=== PATIENT | male | born 1960 | race Caucasian/White ===

== ENCOUNTER → 2016-10-15 | Outpatient (CLI) | payer BC ==
[2016-03-20 11:05] VITALS: BP 135/79
[~2016-10-15] MED LIST: ALLO300T PO; FURO20TA3 PO; HYDR-2679 PO; METO25TA9 PO; WARF7.5T48 PO
--- NOTE | 2016-10-15 15:04 | KCIC ---
PQRS Compliance Statement: One or more of the following individualized dose reduction techniques were utilized for this examination: 1. Automated exposure control 2. Adjustment of the mA and/or kV according to patient size 3. Use of iterative reconstruction technique CT CHEST WO CONTRAST Clinical Indication: Increased shortness of air x2 months. Comparison: None. TECHNIQUE: Helical CT imaging of the chest is performed without IV contrast. Findings: Thyroid is symmetric. There is outside of [id number] artifact that increases noise to signal ratio and degrades image quality. There is no adenopathy in the chest, limited evaluation of the loyd without IV contrast. The great vessels are normal caliber although there is pulsation artifact. Mild coronary artery disease. Cardiac size upper limits of normal. No pericardial effusion. No pleural effusion. Central airways are patent. Mild respiratory motion artifact. There is a 3 mm nodule in the right lower lobe adjacent to the major fissure that is probably an intrapulmonary lymph node, coronal image 48. Tiny calcified granuloma left lower lobe, coronal image 58. Lungs otherwise clear. Visualized upper abdomen unremarkable. Degenerative endplate spurring in the midthoracic spine. No acute bone abnormality. IMPRESSION: 1. No acute pulmonary process. 2. Mild coronary artery disease. 3. Cardiac size upper limits of normal. Electronically signed by: Latrell Ness MD (10/15/2016 3:01 PM)
== END | disposition home or self-care (01) ==
LOC: KCIC CT 12:39
PROVIDERS: ATTEND Nurse Practitioner Family
DX: R06.02 Shortness of breath (principal); I10 Essential (primary) hypertension; Z79.01 Long term (current) use of anticoagulants
CPT/HCPCS: 71250

== ENCOUNTER 2016-10-17 12:40 | Inpatient (IN) | payer BC ==
[~2016-10-17] VITALS: Ht 172.7 cm; Wt 214.5 kg
[2016-10-17 14:42] VITALS: BP 146/66
--- NOTE | 2016-10-17 15:37 | RAD ---
Indication: Shortness of breath and hypertension. Time of exam 1527 hours. Correlation is made with prior study from 12/15/2010 FINDINGS: The heart size is normal. The lungs are clear. No pleural effusion or pneumothorax is identified. The pulmonary vascularity is normal. IMPRESSION: No acute abnormality detected.
[2016-10-17] MEDS: METOPROLOL SUCC 24HR ER 25 MG TAB.ER.24H. PO SCH (15:47)
[2016-10-17] MEDS: ALLOPURINOL 300 MG TABLET. PO SCH (15:47)
--- NOTE | 2016-10-17 15:54 | PDOC2 ---
DANDY KOWALSKI CONSTRUCTION ESTIMATOR 10/17/16 1554: CARDIAC CONSULT DATE OF CONSULT Date of Consult DATE: 10/17/16 TIME: 15:52 REASON FOR CONSULT Reason for Consult: Shortness of breath REFERRING PHYSICIAN Referring Physician: Dr. Vizcarra SOURCE Source: Chart review, Patient HISTORY OF PRESENT ILLNESS HISTORY OF PRESENT ILLNESS This is a 56 yo male directly admitted by Dr. Vizcarra with complaints of shortness of breath. Patient reports experiencing BRIONES over the last 4-6 months. Has progressively worsened. Over the last 2 months, SOA with minimal exertion ( walking 15ft.). LE edema present for the last 5 years. Possibly worse recently. Denies any chest pain, palpitations, dizziness, diaphoresis, or nausea/ vomiting. No prior history of CAD or previous cardiac workup. Does have a h/o AYSHA and is compliant with CPAP. 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 . 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 Was prescribed Lasix 3 days ago, but has not had filled, yet. Labs pending. CXR without acute changes. PAST MEDICAL HISTORY Cardiovascular: HTN Pulmonary: Other (AYSHA with CPAP, PE) GI: GERD Heme/Onc: No pertinent hx Hepatobiliary: No pertinent hx Psych: No pertinent hx Rheumatologic: Gout Infectious disease: No pertinent hx ENT: No pertinent hx Renal/: No pertinent hx Endocrine: Other (morbid obesity ) Dermatology: No pertinent hx PAST SURGICAL HISTORY Past Surgical History: Tonsillectomy, Other (right knee sx) FAMILY HISTORY Family History: Hypertension SOCIAL HISTORY Smoke: Quit (25 yrs ago) ALCOHOL: none Drugs: None Lives: with Family ALLERGIES ALLERGIES: Coded Allergies: No Known Drug Allergies (Unverified , 03/16/16) ROS Review of System 14 point ROS conducted with pertinent positives noted above in HPI. PHYSICAL EXAM General: Alert, Oriented X3, Cooperative, No acute distress HEENT: Atraumatic, Mucous membr. moist/pink Lungs: Clear to auscultation Heart: Regular rate, Normal S1, Normal S2, No murmurs Abdomen: Soft, No tenderness, Other (obese ) Extremities: Normal pulses, Other (2+ bilateral LE edema ) Skin: No breakdown, Other (chronic venous stasis changes og bilateral LE) Neuro: Normal speech, Sensation intact Psych/Mental Status: Mental status NL, Mood NL VITALS VITALS Vital Signs Date Time Temp Pulse Resp B/P (MAP) Pulse Ox O2 Delivery O2 Flow Rate FiO2 10/17/16 15:15 Room Air 10/17/16 14:42 97.9 87 18 146/66 (92) 95 97.9 ASSESSMENT/PLAN ASSESSMENT/PLAN 1. Dyspnea on exertion 2. Hypertension 3. LE edema 4. H/o PE on chronic warfarin therapy 5. AYSHA with CPAP 6. ? hypoventilation syndrome 7. Morbid obesity Recommendations Echo to evaluate LV function, PA pressures. ? Right-sided HF check NT Pro BNP. CXR not consistent with acute HF Mild diuresis as able Further recommendation pending labs and diagnostics. Problems: GAURAV BAUMANN MD 10/17/16 1832: CARDIAC CONSULT ALLERGIES ALLERGIES: Coded Allergies: No Known Drug Allergies (Unverified , 03/16/16) ASSESSMENT/PLAN ASSESSMENT/PLAN Agents seen and examined. Agree with above nurse practitioner note. 56-year-old gentleman with morbid obesity presenting with dyspnea. At this present time he has 1+ pitting edema of the lower extremities. Normal heart tones. His chest x-ray is unremarkable, and the laboratory evaluation reveals no elevation of BNP. Suspect pickwickian syndrome and probable chronic diastolic heart failure. Supportive care and gentle diuresis as tolerated. Suspect his dyspnea is mostly related to his obesity. Although an ischemic evaluation could be considered but due to the patient's morbid obesity a nuclear stress test would likely yield false-positive results. Due to his weight he would also not be able to lie on a cath table. For now would start medical therapy for risk factor modification including aspirin and statin. Check echocardiogram tomorrow and if abnormal consider further evaluation. Problems: DANDY KOWALSKI APRN Oct 17, 2016 15:54 GAURAV BAUMANN MD Oct 17, 2016 18:32
[2016-10-17] MEDS: FUROSEMIDE 20 MG TABLET PO SCH (15:59)
[2016-10-17 16:36] LABS: BASO # 0.1 x10^3/uL (0.0-0.2); BASO % 1 % (0-3); EOS % 1 % (0-3); HEMATOCRIT 38.3 % (39.0-53.0); HEMOGLOBIN 12.4 g/dL (13.0-17.5); LYMPH # 1.9 x10^3/uL (1.0-4.8); LYMPH % 17 % (24-48); MEAN CORPUSCULAR HEMOGLOBIN 27 pg (25-35); MEAN CORPUSCULAR HGB CONC 32 g/dL (31-37); MEAN CORPUSCULAR VOLUME 84 fL (79-100); MONO % 5 % (0-9); NEUT % 77 % (31-73); PLATELET COUNT 196 x10^3/uL (140-400); RED BLOOD COUNT 4.55 x10^6/uL (4.30-5.70); RED CELL DISTRIBUTION WIDTH 16.7 % (11.5-14.5); WHITE BLOOD COUNT 11.3 x10^3/uL (4.0-11.0)
[2016-10-17 16:46] LABS: INR 3.4 (0.8-1.1)
[2016-10-17 16:57] LABS: ALBUMIN 2.9 g/dL (3.4-5.0); ALBUMIN/GLOBULIN RATIO 0.6 (1.0-1.7); CALCIUM 8.8 mg/dL (8.5-10.1); CREATININE 1.2 mg/dL (0.7-1.3); GFR 62.4; TOTAL BILIRUBIN 0.3 mg/dL (0.2-1.0); TOTAL PROTEIN 7.5 g/dL (6.4-8.2)
[2016-10-17 19:00] VITALS: BP 140/77
[2016-10-17 19:25] LABS: BILIRUBIN,URINE NEGATIVE (NEG); GLUCOSE,URINE NEGATIVE (NEG); NITRITE,URINE NEGATIVE (NEG); PH,URINE 5.5; PROTEIN,URINE 30 mg/dL (NEG-TRACE); UROBILINOGEN,URINE 0.2 mg/dL (0.2 mg/dL)
[2016-10-17 19:36] LABS: BACTERIA,URINE FEW /HPF (0-FEW); RBC,URINE >40 /HPF (0-2); SQUAMOUS EPITHELIAL CELL,UR FEW /LPF
--- NOTE | 2016-10-17 20:37 | PDOC ---
GENERAL General: much more sob over last week or so. negative ct chest. history of PE but INR 3.4 so not an issue here. morbid obesity but stable over years. will ask pulmonary and cardiology to help sort out. Hb 12 so anemia not cause. unable to dictate H&P as dictation system not working so will do at later date. Problems: VITAL SIGNS Vital Signs: Vital Signs Date Time Temp Pulse Resp B/P (MAP) Pulse Ox O2 Delivery O2 Flow Rate FiO2 10/17/16 19:00 98.8 77 20 140/77 (98) 99 Room Air 98.8 ALLERGIES Allergies: Allergies Coded Allergies Type Severity Reaction Last Updated Verified No Known Drug Allergies 03/16/16 No MEDS Medications: Current Medications Medications (Trade) Dose Ordered Sig/Alyson Start Time Stop Time Status Last Admin Dose Admin Acetaminophen/ Hydrocodone Bitart (Lortab 7.5/325) 1 tab PRN Q4HRS PRN 10/17/16 15:15 Allopurinol (Zyloprim) 300 mg DAILY 10/17/16 16:00 Furosemide (Lasix) 20 mg DAILY 10/17/16 16:00 10/17/16 15:59 20 MG Metoprolol Succinate (Toprol Xl) 25 mg DAILY 10/17/16 16:00 Warfarin Sodium (Coumadin - No Dose Today) 1 each 1X ONCE 10/17/16 17:15 10/17/16 17:16 DC 10/17/16 17:27 1 EACH Warfarin Sodium (Coumadin Per Pharmacy) 1 each PRN DAILY PRN 10/17/16 15:30 10/17/16 17:02 1 EACH Warfarin Sodium (Coumadin) 7.5 mg DAILY 10/18/16 09:00 UNV LAB Lab: Laboratory Tests Test 10/17/16 16:30 10/17/16 19:10 White Blood Count 11.3 x10^3/uL (4.0-11.0) Red Blood Count 4.55 x10^6/uL (4.30-5.70) Hemoglobin 12.4 g/dL (13.0-17.5) Hematocrit 38.3 % (39.0-53.0) Mean Corpuscular Volume 84 fL (79-100) Mean Corpuscular Hemoglobin 27 pg (25-35) Mean Corpuscular Hemoglobin Concent 32 g/dL (31-37) Red Cell Distribution Width 16.7 % (11.5-14.5) Platelet Count 196 x10^3/uL (140-400) Neutrophils (%) (Auto) 77 % (31-73) Lymphocytes (%) (Auto) 17 % (24-48) Monocytes (%) (Auto) 5 % (0-9) Eosinophils (%) (Auto) 1 % (0-3) Basophils (%) (Auto) 1 % (0-3) Neutrophils # (Auto) 8.7 x10^3uL (1.8-7.7) Lymphocytes # (Auto) 1.9 x10^3/uL (1.0-4.8) Monocytes # (Auto) 0.5 x10^3/uL (0.0-1.1) Eosinophils # (Auto) 0.2 x10^3/uL (0.0-0.7) Basophils # (Auto) 0.1 x10^3/uL (0.0-0.2) Prothrombin Time 32.0 SEC (11.7-14.0) Prothromb Time International Ratio 3.4 (0.8-1.1) Sodium Level 136 mmol/L (136-145) Potassium Level 4.0 mmol/L (3.5-5.1) Chloride Level 101 mmol/L (98-107) Carbon Dioxide Level 30 mmol/L (21-32) Anion Gap 5 (6-14) Blood Urea Nitrogen 14 mg/dL (8-26) Creatinine 1.2 mg/dL (0.7-1.3) Estimated GFR (Cockcroft-Gault) 62.4 BUN/Creatinine Ratio 12 (6-20) Glucose Level 138 mg/dL (70-99) Calcium Level 8.8 mg/dL (8.5-10.1) Total Bilirubin 0.3 mg/dL (0.2-1.0) Aspartate Amino Transf (AST/SGOT) 27 U/L (15-37) Alanine Aminotransferase (ALT/SGPT) 31 U/L (16-63) Alkaline Phosphatase 68 U/L (46-116) OI-Lqf-D-Type Natriuretic Peptide 85 pg/mL (0-124) Total Protein 7.5 g/dL (6.4-8.2) Albumin 2.9 g/dL (3.4-5.0) Albumin/Globulin Ratio 0.6 (1.0-1.7) Thyroid Stimulating Hormone (TSH) 2.022 uIU/mL (0.358-3.74) Urine Collection Type Unknown Urine Color Yellow Urine Clarity Clear Urine pH 5.5 Urine Specific Watson 1.015 Urine Protein 30 mg/dL (NEG-TRACE) Urine Glucose (UA) Negative mg/dL (NEG) Urine Ketones (Stick) Negative mg/dL (NEG) Urine Blood Large (NEG) Urine Nitrite Negative (NEG) Urine Bilirubin Negative (NEG) Urine Urobilinogen Dipstick 0.2 mg/dL (0.2 mg/dL) Urine Leukocyte Esterase Negative (NEG) Urine RBC >40 /HPF (0-2) Urine WBC 1-4 /HPF (0-4) Urine Squamous Epithelial Cells Few /LPF Urine Bacteria Few /HPF (0-FEW) Urine Hyaline Casts Many /HPF Urine Mucus Marked /LPF SHIRA HEDRICK MD Oct 17, 2016 20:37
[2016-10-17 23:00] VITALS: BP 131/80
[2016-10-18 03:00] VITALS: BP 121/68
[2016-10-18 07:00] VITALS: BP 132/79
[2016-10-18] MEDS: FUROSEMIDE 20 MG TABLET PO SCH (08:22)
[2016-10-18] MEDS: ALLOPURINOL 300 MG TABLET. PO SCH (08:22)
[2016-10-18] MEDS: METOPROLOL SUCC 24HR ER 25 MG TAB.ER.24H. PO SCH (08:23)
[2016-10-18] MEDS: HYDROcodone/APAP 7.5/325MG 1 TAB TABLET PO PRN (08:28)
--- NOTE | 2016-10-18 08:29 | PDOC2 ---
CONSULT Date of Consult Date of Consult DATE: 10/18/16 TIME: 08:21 Reason for Consult Reason for Consult: dyspnea Referring Physician Referring Physician: Dr Buenrostro Identification/Chief Complaint Chief Complaint dyspnea Problems: History of Present Illness Reason for Visit: Mr. Lux is a pleasant 56-year-old morbidly obese male who presented to the hospital with complaint of shortness of breath which has been progressive for the last 2 months. He at the same time has gained about 23 pounds he smoked for about 4:15 years before quitting 27 years ago. He denied any chest pain. Some occasional wheezing. He has history of obstructive sleep apnea for which he is compliant with BiPAP at 04/04. His history of pulmonary embolism diagnosed about 5-6 years ago. At that time he did not have any deep vein thrombosis. Patient has been taking Coumadin on a regular basis and his INR was therapeutic. A recent chest x-ray was clear. Abdomen also reviewed his CT chest from 10/15/16. It was a noncontrast CT chest. It was no acute pulmonary process. I've been asked to see him for further evaluation of his dyspnea. Past Medical History Cardiovascular: HTN Pulmonary: Other (AYSHA with CPAP, PE) GI: GERD Heme/Onc: No pertinent hx Hepatobiliary: No pertinent hx Psych: No pertinent hx Rheumatologic: Gout Infectious disease: No pertinent hx ENT: No pertinent hx Renal/: No pertinent hx Endocrine: Other (morbid obesity ) Dermatology: No pertinent hx Past Surgical History Past Surgical History: Tonsillectomy, Other (right knee sx) Family History Family History: Hypertension Social History Quit (25 yrs ago) ALCOHOL: none Drugs: None Lives: with Family Current Medications Current Medications Current Medications Allopurinol (Zyloprim) 300 mg DAILY PO ; Start 10/17/16 at 16:00 Furosemide (Lasix) 20 mg DAILY PO Last administered on 10/17/16t 15:59; Start 10/17/16 at 16:00 Acetaminophen/ Hydrocodone Bitart (Lortab 7.5/325) 1 tab PRN Q4HRS PRN PO PAIN MILD TO MOD; Start 10/17/16 at 15:15 Metoprolol Succinate (Toprol Xl) 25 mg DAILY PO ; Start 10/17/16 at 16:00 Warfarin Sodium (Coumadin) 7.5 mg DAILY PO ; Start 10/18/16 at 09:00; Status UNV Warfarin Sodium (Coumadin Per Pharmacy) 1 each PRN DAILY PRN MC SEE COMMENTS Last administered on 10/17/16 17:02; Start 10/17/16 at 15:30 Warfarin Sodium (Coumadin - No Dose Today) 1 each 1X ONCE MC Last administered on 10/17/16 17:27; Start 10/17/16 at 17:15; Stop 10/17/16 at 17:16 ; Status DC Active Scripts Active Furosemide 20 Mg Tablet 20 Mg PO DAILY Reported Lortab 7.5-325 mg Tablet (Hydrocodone/Acetaminophen) 1 Each Tablet 1 Tab PO PRN Q4HRS PRN Coumadin (Warfarin Sodium) 7.5 Mg Tablet 1 Tab PO DAILY Allopurinol 300 Mg Tablet 1 Tab PO DAILY Metoprolol Succinate ( Xl ) (Metoprolol Succinate) 25 Mg Tab.er.24h 1 Tab PO DAILY Allergies Allergies: Coded Allergies: No Known Drug Allergies (Unverified , 03/16/16) ROS Review of System Essentially unremarkable except for as discussed in my history of present illness. All systems were reviewed. Physical Exam General: Alert, No acute distress HEENT: Atraumatic Lungs: Clear to auscultation Heart: Regular rate, Normal S1, Normal S2 Abdomen: Normal bowel sounds, Other (obese) Skin: No rashes, Other (edema) Vitals VITALS Vital Signs Date Time Temp Pulse Resp B/P (MAP) Pulse Ox O2 Delivery O2 Flow Rate FiO2 10/18/16 07:00 98.0 74 22 132/79 (96) 96 Room Air 98.0 Labs Labs Laboratory Tests Test 10/17/16 16:30 10/17/16 19:10 White Blood Count 11.3 x10^3/uL (4.0-11.0) Red Blood Count 4.55 x10^6/uL (4.30-5.70) Hemoglobin 12.4 g/dL (13.0-17.5) Hematocrit 38.3 % (39.0-53.0) Mean Corpuscular Volume 84 fL (79-100) Mean Corpuscular Hemoglobin 27 pg (25-35) Mean Corpuscular Hemoglobin Concent 32 g/dL (31-37) Red Cell Distribution Width 16.7 % (11.5-14.5) Platelet Count 196 x10^3/uL (140-400) Neutrophils (%) (Auto) 77 % (31-73) Lymphocytes (%) (Auto) 17 % (24-48) Monocytes (%) (Auto) 5 % (0-9) Eosinophils (%) (Auto) 1 % (0-3) Basophils (%) (Auto) 1 % (0-3) Neutrophils # (Auto) 8.7 x10^3uL (1.8-7.7) Lymphocytes # (Auto) 1.9 x10^3/uL (1.0-4.8) Monocytes # (Auto) 0.5 x10^3/uL (0.0-1.1) Eosinophils # (Auto) 0.2 x10^3/uL (0.0-0.7) Basophils # (Auto) 0.1 x10^3/uL (0.0-0.2) Prothrombin Time 32.0 SEC (11.7-14.0) Prothromb Time International Ratio 3.4 (0.8-1.1) Sodium Level 136 mmol/L (136-145) Potassium Level 4.0 mmol/L (3.5-5.1) Chloride Level 101 mmol/L (98-107) Carbon Dioxide Level 30 mmol/L (21-32) Anion Gap 5 (6-14) Blood Urea Nitrogen 14 mg/dL (8-26) Creatinine 1.2 mg/dL (0.7-1.3) Estimated GFR (Cockcroft-Gault) 62.4 BUN/Creatinine Ratio 12 (6-20) Glucose Level 138 mg/dL (70-99) Calcium Level 8.8 mg/dL (8.5-10.1) Total Bilirubin 0.3 mg/dL (0.2-1.0) Aspartate Amino Transf (AST/SGOT) 27 U/L (15-37) Alanine Aminotransferase (ALT/SGPT) 31 U/L (16-63) Alkaline Phosphatase 68 U/L (46-116) HL-Gln-I-Type Natriuretic Peptide 85 pg/mL (0-124) Total Protein 7.5 g/dL (6.4-8.2) Albumin 2.9 g/dL (3.4-5.0) Albumin/Globulin Ratio 0.6 (1.0-1.7) Thyroid Stimulating Hormone (TSH) 2.022 uIU/mL (0.358-3.74) Urine Collection Type Unknown Urine Color Yellow Urine Clarity Clear Urine pH 5.5 Urine Specific Mccune 1.015 Urine Protein 30 mg/dL (NEG-TRACE) Urine Glucose (UA) Negative mg/dL (NEG) Urine Ketones (Stick) Negative mg/dL (NEG) Urine Blood Large (NEG) Urine Nitrite Negative (NEG) Urine Bilirubin Negative (NEG) Urine Urobilinogen Dipstick 0.2 mg/dL (0.2 mg/dL) Urine Leukocyte Esterase Negative (NEG) Urine RBC >40 /HPF (0-2) Urine WBC 1-4 /HPF (0-4) Urine Squamous Epithelial Cells Few /LPF Urine Bacteria Few /HPF (0-FEW) Urine Hyaline Casts Many /HPF Urine Mucus Marked /LPF Laboratory Tests Test 10/17/16 16:30 10/17/16 19:10 White Blood Count 11.3 x10^3/uL (4.0-11.0) Red Blood Count 4.55 x10^6/uL (4.30-5.70) Hemoglobin 12.4 g/dL (13.0-17.5) Hematocrit 38.3 % (39.0-53.0) Mean Corpuscular Volume 84 fL (79-100) Mean Corpuscular Hemoglobin 27 pg (25-35) Mean Corpuscular Hemoglobin Concent 32 g/dL (31-37) Red Cell Distribution Width 16.7 % (11.5-14.5) Platelet Count 196 x10^3/uL (140-400) Neutrophils (%) (Auto) 77 % (31-73) Lymphocytes (%) (Auto) 17 % (24-48) Monocytes (%) (Auto) 5 % (0-9) Eosinophils (%) (Auto) 1 % (0-3) Basophils (%) (Auto) 1 % (0-3) Neutrophils # (Auto) 8.7 x10^3uL (1.8-7.7) Lymphocytes # (Auto) 1.9 x10^3/uL (1.0-4.8) Monocytes # (Auto) 0.5 x10^3/uL (0.0-1.1) Eosinophils # (Auto) 0.2 x10^3/uL (0.0-0.7) Basophils # (Auto) 0.1 x10^3/uL (0.0-0.2) Prothrombin Time 32.0 SEC (11.7-14.0) Prothromb Time International Ratio 3.4 (0.8-1.1) Sodium Level 136 mmol/L (136-145) Potassium Level 4.0 mmol/L (3.5-5.1) Chloride Level 101 mmol/L (98-107) Carbon Dioxide Level 30 mmol/L (21-32) Anion Gap 5 (6-14) Blood Urea Nitrogen 14 mg/dL (8-26) Creatinine 1.2 mg/dL (0.7-1.3) Estimated GFR (Cockcroft-Gault) 62.4 BUN/Creatinine Ratio 12 (6-20) Glucose Level 138 mg/dL (70-99) Calcium Level 8.8 mg/dL (8.5-10.1) Total Bilirubin 0.3 mg/dL (0.2-1.0) Aspartate Amino Transf (AST/SGOT) 27 U/L (15-37) Alanine Aminotransferase (ALT/SGPT) 31 U/L (16-63) Alkaline Phosphatase 68 U/L (46-116) HU-Yls-U-Type Natriuretic Peptide 85 pg/mL (0-124) Total Protein 7.5 g/dL (6.4-8.2) Albumin 2.9 g/dL (3.4-5.0) Albumin/Globulin Ratio 0.6 (1.0-1.7) Thyroid Stimulating Hormone (TSH) 2.022 uIU/mL (0.358-3.74) Urine Collection Type Unknown Urine Color Yellow Urine Clarity Clear Urine pH 5.5 Urine Specific Mccune 1.015 Urine Protein 30 mg/dL (NEG-TRACE) Urine Glucose (UA) Negative mg/dL (NEG) Urine Ketones (Stick) Negative mg/dL (NEG) Urine Blood Large (NEG) Urine Nitrite Negative (NEG) Urine Bilirubin Negative (NEG) Urine Urobilinogen Dipstick 0.2 mg/dL (0.2 mg/dL) Urine Leukocyte Esterase Negative (NEG) Urine RBC >40 /HPF (0-2) Urine WBC 1-4 /HPF (0-4) Urine Squamous Epithelial Cells Few /LPF Urine Bacteria Few /HPF (0-FEW) Urine Hyaline Casts Many /HPF Urine Mucus Marked /LPF Assessment/Plan Assessment/Plan IMPRESSION 1. Dyspnea which has been progressive for the last 2 months. This is most likely related to 23 pound weight gain and physical deconditioning. He is morbidly obese and has lower extremity edema and the possibility of acute cor pulmonale would be a likely reason 2. History of pulmonary embolism in a patient who is morbidly obese. Pulmonary embolism was diagnosed about 5-6 years ago. 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 He had no DVT at that time of diagnosis of pulmonary embolism. INR is therapeutic and at this point I do not see any further workup .will remain on lifelong coumadin as long as his risk factors are present. 3.. Need to rule out pulmonary hypertension. Echocardiogram has been ordered. 4. AYSHA with good Compliance with BiPAP at 16/ 12. RECOMMENDATIONS 1 weight loss is strongly advised 2. Continue diuresis 3. Follow-up with echocardiogram to rule out pulmonary hypertension. 4. Continue lifelong Coumadin. 5. BiPAP daily at bedtime JOHANA LOPEZ MD Oct 18, 2016 08:29
[2016-10-18] MEDS ORDERED: WARFARIN 7.5 MG TABLET. PO SCH (09:00)
--- NOTE | 2016-10-18 10:24 | PDOC ---
Provider Note Provider Note edema, echo pending, labs ok, likely CP- on warf w/ good inr- add iv lasix re pitting edema, 1-2 days diuresis- tsh ok ANETTE GREEN MD Oct 18, 2016 10:24
[2016-10-18 11:00] VITALS: BP 124/88
[2016-10-18] MEDS: FUROSEMIDE 40 MG/4 ML VIAL. IVP SCH ×2 (11:34→14:57)
[2016-10-18 11:41] LABS: INR 3.2 (0.8-1.1); PROTHROMBIN TIME PATIENT 30.6 SEC (11.7-14.0)
[2016-10-18 11:51] LABS: CHOLESTEROL/HDL RATIO 5.5
--- NOTE | 2016-10-18 12:04 | PDOC ---
PROGRESS NOTES Subjective Subjective The patient is feeling better today. Objective Objective Vital Signs Date Time Temp Pulse Resp B/P (MAP) Pulse Ox O2 Delivery O2 Flow Rate FiO2 10/18/16 11:00 98.0 72 20 124/88 (100) 98 Room Air 98.0 Intake and Output 10/18/16 07:00 Intake Total 240 ml Balance 240 ml Intake Oral 240 ml # Voids 4 Physical Exam Abdomen: Normal bowel sounds Heart: Regular rate General: No acute distress Lungs: Clear to auscultation Assessment Assessment 1. Dyspnea on exertion. Improved today. Multiple contributing factors especially the patient's morbid obesity. Will continue present treatments. Echocardiogram today. 2. Hypertension. Under better control. Continue present treatments. 3. LE edema 4. H/o PE on chronic warfarin therapy 5. AYSHA with CPAP 6. ? hypoventilation syndrome 7. Morbid obesity Comment Review of Relevant I have reviewed the following items saloni (where applicable) has been applied. Labs Laboratory Tests Test 10/17/16 16:30 10/17/16 19:10 10/18/16 11:00 10/18/16 11:12 White Blood Count 11.3 x10^3/uL (4.0-11.0) Red Blood Count 4.55 x10^6/uL (4.30-5.70) Hemoglobin 12.4 g/dL (13.0-17.5) Hematocrit 38.3 % (39.0-53.0) Mean Corpuscular Volume 84 fL (79-100) Mean Corpuscular Hemoglobin 27 pg (25-35) Mean Corpuscular Hemoglobin Concent 32 g/dL (31-37) Red Cell Distribution Width 16.7 % (11.5-14.5) Platelet Count 196 x10^3/uL (140-400) Neutrophils (%) (Auto) 77 % (31-73) Lymphocytes (%) (Auto) 17 % (24-48) Monocytes (%) (Auto) 5 % (0-9) Eosinophils (%) (Auto) 1 % (0-3) Basophils (%) (Auto) 1 % (0-3) Neutrophils # (Auto) 8.7 x10^3uL (1.8-7.7) Lymphocytes # (Auto) 1.9 x10^3/uL (1.0-4.8) Monocytes # (Auto) 0.5 x10^3/uL (0.0-1.1) Eosinophils # (Auto) 0.2 x10^3/uL (0.0-0.7) Basophils # (Auto) 0.1 x10^3/uL (0.0-0.2) Prothrombin Time 32.0 SEC (11.7-14.0) 30.6 SEC (11.7-14.0) Prothromb Time International Ratio 3.4 (0.8-1.1) 3.2 (0.8-1.1) Sodium Level 136 mmol/L (136-145) Potassium Level 4.0 mmol/L (3.5-5.1) Chloride Level 101 mmol/L (98-107) Carbon Dioxide Level 30 mmol/L (21-32) Anion Gap 5 (6-14) Blood Urea Nitrogen 14 mg/dL (8-26) Creatinine 1.2 mg/dL (0.7-1.3) Estimated GFR (Cockcroft-Gault) 62.4 BUN/Creatinine Ratio 12 (6-20) Glucose Level 138 mg/dL (70-99) Calcium Level 8.8 mg/dL (8.5-10.1) Total Bilirubin 0.3 mg/dL (0.2-1.0) Aspartate Amino Transf (AST/SGOT) 27 U/L (15-37) Alanine Aminotransferase (ALT/SGPT) 31 U/L (16-63) Alkaline Phosphatase 68 U/L (46-116) WO-Lbd-L-Type Natriuretic Peptide 85 pg/mL (0-124) Total Protein 7.5 g/dL (6.4-8.2) Albumin 2.9 g/dL (3.4-5.0) Albumin/Globulin Ratio 0.6 (1.0-1.7) Thyroid Stimulating Hormone (TSH) 2.022 uIU/mL (0.358-3.74) Urine Collection Type Unknown Urine Color Yellow Urine Clarity Clear Urine pH 5.5 Urine Specific [place] 1.015 Urine Protein 30 mg/dL (NEG-TRACE) Urine Glucose (UA) Negative mg/dL (NEG) Urine Ketones (Stick) Negative mg/dL (NEG) Urine Blood Large (NEG) Urine Nitrite Negative (NEG) Urine Bilirubin Negative (NEG) Urine Urobilinogen Dipstick 0.2 mg/dL (0.2 mg/dL) Urine Leukocyte Esterase Negative (NEG) Urine RBC >40 /HPF (0-2) Urine WBC 1-4 /HPF (0-4) Urine Squamous Epithelial Cells Few /LPF Urine Bacteria Few /HPF (0-FEW) Urine Hyaline Casts Many /HPF Urine Mucus Marked /LPF Triglycerides Level 143 mg/dL (0-150) Cholesterol Level 154 mg/dL (0-200) LDL Cholesterol, Calculated 97 mg/dL (0-100) VLDL Cholesterol, Calculated 29 mg/dL (0-40) Non-HDL Cholesterol Calculated 126 mg/dL (0-129) HDL Cholesterol 28 mg/dL (40-60) Cholesterol/HDL Ratio 5.5 Laboratory Tests Test 10/17/16 16:30 10/17/16 19:10 10/18/16 11:00 10/18/16 11:12 White Blood Count 11.3 x10^3/uL (4.0-11.0) Red Blood Count 4.55 x10^6/uL (4.30-5.70) Hemoglobin 12.4 g/dL (13.0-17.5) Hematocrit 38.3 % (39.0-53.0) Mean Corpuscular Volume 84 fL (79-100) Mean Corpuscular Hemoglobin 27 pg (25-35) Mean Corpuscular Hemoglobin Concent 32 g/dL (31-37) Red Cell Distribution Width 16.7 % (11.5-14.5) Platelet Count 196 x10^3/uL (140-400) Neutrophils (%) (Auto) 77 % (31-73) Lymphocytes (%) (Auto) 17 % (24-48) Monocytes (%) (Auto) 5 % (0-9) Eosinophils (%) (Auto) 1 % (0-3) Basophils (%) (Auto) 1 % (0-3) Neutrophils # (Auto) 8.7 x10^3uL (1.8-7.7) Lymphocytes # (Auto) 1.9 x10^3/uL (1.0-4.8) Monocytes # (Auto) 0.5 x10^3/uL (0.0-1.1) Eosinophils # (Auto) 0.2 x10^3/uL (0.0-0.7) Basophils # (Auto) 0.1 x10^3/uL (0.0-0.2) Prothrombin Time 32.0 SEC (11.7-14.0) 30.6 SEC (11.7-14.0) Prothromb Time International Ratio 3.4 (0.8-1.1) 3.2 (0.8-1.1) Sodium Level 136 mmol/L (136-145) Potassium Level 4.0 mmol/L (3.5-5.1) Chloride Level 101 mmol/L (98-107) Carbon Dioxide Level 30 mmol/L (21-32) Anion Gap 5 (6-14) Blood Urea Nitrogen 14 mg/dL (8-26) Creatinine 1.2 mg/dL (0.7-1.3) Estimated GFR (Cockcroft-Gault) 62.4 BUN/Creatinine Ratio 12 (6-20) Glucose Level 138 mg/dL (70-99) Calcium Level 8.8 mg/dL (8.5-10.1) Total Bilirubin 0.3 mg/dL (0.2-1.0) Aspartate Amino Transf (AST/SGOT) 27 U/L (15-37) Alanine Aminotransferase (ALT/SGPT) 31 U/L (16-63) Alkaline Phosphatase 68 U/L (46-116) VL-Dqp-L-Type Natriuretic Peptide 85 pg/mL (0-124) Total Protein 7.5 g/dL (6.4-8.2) Albumin 2.9 g/dL (3.4-5.0) Albumin/Globulin Ratio 0.6 (1.0-1.7) Thyroid Stimulating Hormone (TSH) 2.022 uIU/mL (0.358-3.74) Urine Collection Type Unknown Urine Color Yellow Urine Clarity Clear Urine pH 5.5 Urine Specific [place] 1.015 Urine Protein 30 mg/dL (NEG-TRACE) Urine Glucose (UA) Negative mg/dL (NEG) Urine Ketones (Stick) Negative mg/dL (NEG) Urine Blood Large (NEG) Urine Nitrite Negative (NEG) Urine Bilirubin Negative (NEG) Urine Urobilinogen Dipstick 0.2 mg/dL (0.2 mg/dL) Urine Leukocyte Esterase Negative (NEG) Urine RBC >40 /HPF (0-2) Urine WBC 1-4 /HPF (0-4) Urine Squamous Epithelial Cells Few /LPF Urine Bacteria Few /HPF (0-FEW) Urine Hyaline Casts Many /HPF Urine Mucus Marked /LPF Triglycerides Level 143 mg/dL (0-150) Cholesterol Level 154 mg/dL (0-200) LDL Cholesterol, Calculated 97 mg/dL (0-100) VLDL Cholesterol, Calculated 29 mg/dL (0-40) Non-HDL Cholesterol Calculated 126 mg/dL (0-129) HDL Cholesterol 28 mg/dL (40-60) Cholesterol/HDL Ratio 5.5 Medications Current Medications Allopurinol (Zyloprim) 300 mg DAILY PO Last administered on 10/18/16 08:22; Start 10/17/16 at 16:00 Furosemide (Lasix) 20 mg DAILY PO Last administered on 10/18/16 08:22; Start at 16:00; Stop 10/18/16 at 10:23; Status DC Acetaminophen/ Hydrocodone Bitart (Lortab 7.5/325) 1 tab PRN Q4HRS PRN PO PAIN MILD TO MOD Last administered on 10/18/16 08:28; Start 10/17/16 at 15:15 Metoprolol Succinate (Toprol Xl) 25 mg DAILY PO Last administered on 10/18/16 08:23; Start 10/17/16 at 16:00 Warfarin Sodium (Coumadin) 7.5 mg DAILY PO ; Start 10/18/16 at 09:00; Status UNV Warfarin Sodium (Coumadin Per Pharmacy) 1 each PRN DAILY PRN MC SEE COMMENTS Last administered on 10/17/16 17:02; Start 10/17/16 at 15:30 Warfarin Sodium (Coumadin - No Dose Today) 1 each 1X ONCE MC Last administered on 10/17/16 17:27; Start 10/17/16 at 17:15; Stop 10/17/16 at 17:16 ; Status DC Furosemide (Lasix) 40 mg BID92 IVP Last administered on 10/18/16 11:34; Start 10/18/16 at 11:00 Potassium Chloride (Klor-Con) 10 meq TIDAFTMEAL PO ; Start 10/18/16 at 13:00 Active Scripts Active Furosemide 20 Mg Tablet 20 Mg PO DAILY Reported Lortab 7.5-325 mg Tablet (Hydrocodone/Acetaminophen) 1 Each Tablet 1 Tab PO PRN Q4HRS PRN Coumadin (Warfarin Sodium) 7.5 Mg Tablet 1 Tab PO DAILY Allopurinol 300 Mg Tablet 1 Tab PO DAILY Metoprolol Succinate ( Xl ) (Metoprolol Succinate) 25 Mg Tab.er.24h 1 Tab PO DAILY Vitals/I & O Vital Sign - Last 24 Hours 10/17/16 10/17/16 10/17/16 10/17/16 14:42 15:15 19:00 20:00 Temp 97.9 98.8 97.9 98.8 Pulse 87 77 Resp 18 20 B/P (MAP) 146/66 (92) 140/77 (98) Pulse Ox 95 99 O2 Delivery Room Air Room Air Room Air Room Air 10/17/16 10/18/16 10/18/16 10/18/16 23:00 03:00 07:00 08:00 Temp 98.5 97.6 98.0 98.5 97.6 98.0 Pulse 70 64 74 Resp 18 18 22 B/P (MAP) 131/80 (97) 121/68 (85) 132/79 (96) Pulse Ox 96 97 96 O2 Delivery Room Air Room Air Room Air Room Air 10/18/16 10/18/16 10/18/16 10/18/16 08:23 08:28 09:28 11:00 Temp 98.0 98.0 Pulse 74 72 Resp 20 B/P (MAP) 132/79 124/88 (100) Pulse Ox 98 O2 Delivery Room Air Room Air Room Air Intake and Output 10/17/16 10/17/16 10/18/16 15:00 23:00 07:00 Intake Total 120 ml 120 ml Balance 120 ml 120 ml JAH GELLER MD Oct 18, 2016 12:04
--- NOTE | 2016-10-18 12:20 | CARD ---
APPROVED REPORT EXAM: Two-dimensional and M-mode echocardiogram with Doppler and color Doppler. Other Information Quality : GoodHR: 76bpm Rhythm : NSRTechnically limited study due to body habitus INDICATION SOA, LE Edema RISK FACTORS Obesity 2D DIMENSIONS RVDd2.9 (2.9-3.5cm)Left Atrium(2D)4.2 (1.6-4.0cm) IVSd0.9 (0.7-1.1cm)Aortic Root(2D)3.0 (2.0-3.7cm) LVDd5.9 (3.9-5.9cm)LVOT Diameter3.0 (1.8-2.4cm) PWd1.0 (0.7-1.1cm)LVDs4.1 (2.5-4.0cm) FS (%) 30.6 %SV99.2 ml LVEF(%)57.3 (>50%) Aortic Valve AoV Peak Froylan.156.9cm/sAoV VTI29.3cm AO Peak GR.9.8mmHgLVOT Peak Froylan.97.0cm/s AO Mean GR.5mmHgAVA (VMAX)4.32cm2 Mitral Valve MV E Tnimepig19.6cm/sMV E Peak Gr.5mmHg MV DECEL [id number] A Fzpcnlth162.4cm/s MV E Mean Gr.2mmHgE/A Ratio0.7 MV A [id number] Pulmonary Valve PV Peak Sdejindg939.9cm/s Pulmonary Vein S1 Zvaiwcaf07.6cm/sD2 Zyetyobf60.9cm/s PVa [id number] LEFT VENTRICLE Technically difficult study. The left ventricle is normal size. There is normal left ventricular wall thickness. The left ventricular systolic function is normal and the ejection fraction is within norm al range. The Ejection Fraction is 55-60%. There is normal LV segmental wall motion. Transmitral Dopp ler flow pattern is Grade I-abnormal relaxation pattern. RIGHT VENTRICLE The right ventricle is borderline dilated. There is normal right ventricular wall thickness. The righ t ventricular systolic function is normal. ATRIA The left atrium size is normal. The right atrium size is normal. The interatrial septum is intact wit h no evidence for an atrial septal defect or patent foramen ovale as noted on 2-D or Doppler imaging. AORTIC VALVE The aortic valve is not well visualized but appears to opens well. Doppler and Color Flow revealed no significant aortic regurgitation. There is no significant aortic valvular stenosis. MITRAL VALVE Mitral annular calcification is mild. The mitral valve leaflets are mildly thickened. There is no daniele dence of mitral valve prolapse. There is no mitral valve stenosis. Doppler and Color Flow revealed tr benny mitral valve regurgitation. TRICUSPID VALVE The tricuspid valve is not well visualized but appears to opens well. Doppler and Color Flow revealed no tricuspid valve regurgitation noted. PULMONIC VALVE The pulmonic valve is not well visualized but appears to opens well. Doppler and Color Flow revealed no pulmonic valvular regurgitation. There is no pulmonic valvular stenosis. GREAT VESSELS The aortic root is normal in size. The ascending aorta is normal in size. The pulmonary artery is not well visualized. The IVC is normal in size and collapses >50% with inspiration. PERICARDIAL EFFUSION There is no evidence of significant pericardial effusion. Critical Notification Critical Value: No <Conclusion> Technically difficult study. The left ventricle is normal size. The left ventricular systolic function is normal and the ejection fraction is within normal range. The Ejection Fraction is 55-60%. There is no significant aortic valvular stenosis. Doppler and Color Flow revealed no significant aortic regurgitation. Doppler and Color Flow revealed trace mitral valve regurgitation. Doppler and Color Flow revealed no tricuspid valve regurgitation noted. No evidence of pulmonary hypertension. There is no evidence of significant pericardial effusion.
[2016-10-18] MEDS: POTASSIUM CHLORIDE 10 MEQ TABLET.ER. PO SCH ×2 (12:54→17:35)
[2016-10-18 15:00] VITALS: BP 131/88
[2016-10-18] MEDS ORDERED: WARFARIN 1 MG TABLET. PO ONE (16:00)
[2016-10-18 19:00] VITALS: BP 128/67
[2016-10-18 23:00] VITALS: BP 134/81
[2016-10-19 03:24] VITALS: BP 123/73
[2016-10-19 06:01] LABS: INR 2.7 (0.8-1.1); PROTHROMBIN TIME PATIENT 26.9 SEC (11.7-14.0)
[2016-10-19 07:47] VITALS: BP 102/82
[2016-10-19] MEDS: METOPROLOL SUCC 24HR ER 25 MG TAB.ER.24H. PO SCH (08:24)
[2016-10-19] MEDS: ALLOPURINOL 300 MG TABLET. PO SCH (08:25)
[2016-10-19] MEDS: FUROSEMIDE 40 MG/4 ML VIAL. IVP SCH ×2 (08:25→13:11)
[2016-10-19] MEDS: POTASSIUM CHLORIDE 10 MEQ TABLET.ER. PO SCH ×3 (08:25→18:23)
[2016-10-19] MEDS: HYDROcodone/APAP 7.5/325MG 1 TAB TABLET PO PRN ×2 (08:37→18:24)
--- NOTE | 2016-10-19 09:30 | PDOC ---
PULMONARY PROGRESS NOTES Subjective no soa Vitals Vital Signs Date Time Temp Pulse Resp B/P (MAP) Pulse Ox O2 Delivery O2 Flow Rate FiO2 10/19/16 08:24 86 102/82 10/19/16 07:47 98.4 22 97 BiPAP/CPAP 98.4 General: Alert, No acute distress Lungs: Clear Cardiovascular: S1 Abdomen: Soft, Other (obese) Neuro Exam: Alert Extremities: Other (1+edema) Skin: Warm Labs Laboratory Tests Test 10/17/16 16:30 10/17/16 19:10 10/18/16 11:00 10/18/16 11:12 White Blood Count 11.3 x10^3/uL (4.0-11.0) Red Blood Count 4.55 x10^6/uL (4.30-5.70) Hemoglobin 12.4 g/dL (13.0-17.5) Hematocrit 38.3 % (39.0-53.0) Mean Corpuscular Volume 84 fL (79-100) Mean Corpuscular Hemoglobin 27 pg (25-35) Mean Corpuscular Hemoglobin Concent 32 g/dL (31-37) Red Cell Distribution Width 16.7 % (11.5-14.5) Platelet Count 196 x10^3/uL (140-400) Neutrophils (%) (Auto) 77 % (31-73) Lymphocytes (%) (Auto) 17 % (24-48) Monocytes (%) (Auto) 5 % (0-9) Eosinophils (%) (Auto) 1 % (0-3) Basophils (%) (Auto) 1 % (0-3) Neutrophils # (Auto) 8.7 x10^3uL (1.8-7.7) Lymphocytes # (Auto) 1.9 x10^3/uL (1.0-4.8) Monocytes # (Auto) 0.5 x10^3/uL (0.0-1.1) Eosinophils # (Auto) 0.2 x10^3/uL (0.0-0.7) Basophils # (Auto) 0.1 x10^3/uL (0.0-0.2) Prothrombin Time 32.0 SEC (11.7-14.0) 30.6 SEC (11.7-14.0) Prothromb Time International Ratio 3.4 (0.8-1.1) 3.2 (0.8-1.1) Sodium Level 136 mmol/L (136-145) Potassium Level 4.0 mmol/L (3.5-5.1) Chloride Level 101 mmol/L (98-107) Carbon Dioxide Level 30 mmol/L (21-32) Anion Gap 5 (6-14) Blood Urea Nitrogen 14 mg/dL (8-26) Creatinine 1.2 mg/dL (0.7-1.3) Estimated GFR (Cockcroft-Gault) 62.4 BUN/Creatinine Ratio 12 (6-20) Glucose Level 138 mg/dL (70-99) Calcium Level 8.8 mg/dL (8.5-10.1) Total Bilirubin 0.3 mg/dL (0.2-1.0) Aspartate Amino Transf (AST/SGOT) 27 U/L (15-37) Alanine Aminotransferase (ALT/SGPT) 31 U/L (16-63) Alkaline Phosphatase 68 U/L (46-116) TG-Tvc-I-Type Natriuretic Peptide 85 pg/mL (0-124) Total Protein 7.5 g/dL (6.4-8.2) Albumin 2.9 g/dL (3.4-5.0) Albumin/Globulin Ratio 0.6 (1.0-1.7) Thyroid Stimulating Hormone (TSH) 2.022 uIU/mL (0.358-3.74) Urine Collection Type Unknown Urine Color Yellow Urine Clarity Clear Urine pH 5.5 Urine Specific [place] 1.015 Urine Protein 30 mg/dL (NEG-TRACE) Urine Glucose (UA) Negative mg/dL (NEG) Urine Ketones (Stick) Negative mg/dL (NEG) Urine Blood Large (NEG) Urine Nitrite Negative (NEG) Urine Bilirubin Negative (NEG) Urine Urobilinogen Dipstick 0.2 mg/dL (0.2 mg/dL) Urine Leukocyte Esterase Negative (NEG) Urine RBC >40 /HPF (0-2) Urine WBC 1-4 /HPF (0-4) Urine Squamous Epithelial Cells Few /LPF Urine Bacteria Few /HPF (0-FEW) Urine Hyaline Casts Many /HPF Urine Mucus Marked /LPF Hemoglobin A1c 6.5 % (4.8-5.6) Triglycerides Level 143 mg/dL (0-150) Cholesterol Level 154 mg/dL (0-200) LDL Cholesterol, Calculated 97 mg/dL (0-100) VLDL Cholesterol, Calculated 29 mg/dL (0-40) Non-HDL Cholesterol Calculated 126 mg/dL (0-129) HDL Cholesterol 28 mg/dL (40-60) Cholesterol/HDL Ratio 5.5 Test 10/19/16 05:16 Prothrombin Time 26.9 SEC (11.7-14.0) Prothromb Time International Ratio 2.7 (0.8-1.1) Laboratory Tests Test 10/18/16 11:00 10/18/16 11:12 10/19/16 05:16 Prothrombin Time 30.6 SEC (11.7-14.0) 26.9 SEC (11.7-14.0) Prothromb Time International Ratio 3.2 (0.8-1.1) 2.7 (0.8-1.1) Hemoglobin A1c 6.5 % (4.8-5.6) Triglycerides Level 143 mg/dL (0-150) Cholesterol Level 154 mg/dL (0-200) LDL Cholesterol, Calculated 97 mg/dL (0-100) VLDL Cholesterol, Calculated 29 mg/dL (0-40) Non-HDL Cholesterol Calculated 126 mg/dL (0-129) HDL Cholesterol 28 mg/dL (40-60) Cholesterol/HDL Ratio 5.5 Medications Active Scripts Medications Dose Route/Sig Max Daily Dose Days Date Category Furosemide 20 Mg Tablet 20 Mg PO DAILY 03/20/16 Rx Lortab 7.5-325 mg Tablet (Hydrocodone/Acetaminophen) 1 Each Tablet 1 Tab PO PRN Q4HRS PRN 03/16/16 Reported Coumadin (Warfarin Sodium) 7.5 Mg Tablet 1 Tab PO DAILY 03/16/16 Reported Allopurinol 300 Mg Tablet 1 Tab PO DAILY 03/16/16 Reported Metoprolol Succinate ( Xl ) (Metoprolol Succinate) 25 Mg Tab.er.24h 1 Tab PO DAILY 03/16/16 Reported Impression . 1. Dyspnea which has been progressive for the last 2 months. This is most likely related to 23 pound weight gain and physical deconditioning. He is morbidly obese and has lower extremity edema and the possibility of acute cor pulmonale would be a likely reason 2. History of pulmonary embolism in a patient who is morbidly obese. Pulmonary embolism was diagnosed about 5-6 years ago. 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 He had no DVT at that time of diagnosis of pulmonary embolism. INR is therapeutic and at this point I do not see any further workup .will remain on lifelong coumadin as long as his risk factors are present. 3..No evidence of pulmonary hypertension by echo. Normal LV function 4. AYSHA with good Compliance with BiPAP at 16/ 12. Plan . 1 weight loss is strongly advised 2. Continue diuresis 3. Follow-up with echocardiogram with no significant pulmonary hypertension. 4. Continue lifelong Coumadin. 5. BiPAP daily at bedtime JOHANA LOPEZ MD Oct 19, 2016 09:30
--- NOTE | 2016-10-19 10:51 | PDOC ---
Provider Note Provider Note inr 2.7, vss, good diuresis, echo noted- edema in legs still same - continue iv lasix another day- K+ in am ANETTE GREEN MD Oct 19, 2016 10:51
[2016-10-19 11:00] VITALS: BP 139/84
--- NOTE | 2016-10-19 14:30 | PDOC ---
PROGRESS NOTES Subjective Subjective The patient looks and feels better today. Objective Objective Vital Signs Date Time Temp Pulse Resp B/P (MAP) Pulse Ox O2 Delivery O2 Flow Rate FiO2 10/19/16 11:00 98.5 81 18 139/84 (102) 96 98.5 10/19/16 08:00 Room Air Intake and Output 10/19/16 07:00 Intake Total 2410 ml Output Total 1500 ml Balance 910 ml Intake Oral 2410 ml Output Urine Total 1500 ml # Voids 8 Physical Exam Abdomen: Normal bowel sounds Heart: Regular rate General: mild distress Lungs: Other (mildly decreased breath sounds) Assessment Assessment 1. Dyspnea on exertion. Improved. Multiple contributing factors especially the patient's morbid obesity. Echocardiogram shows intact LV systolic function and no significant pulmonary hypertension. 2. Hypertension. Under better control. Continue present treatments. 3. LE edema 4. H/o PE on chronic warfarin therapy 5. AYSHA with CPAP 6. ? hypoventilation syndrome 7. Morbid obesity Comment Review of Relevant I have reviewed the following items saloni (where applicable) has been applied. Labs Laboratory Tests Test 10/17/16 16:30 10/17/16 19:10 10/18/16 11:00 10/18/16 11:12 White Blood Count 11.3 x10^3/uL (4.0-11.0) Red Blood Count 4.55 x10^6/uL (4.30-5.70) Hemoglobin 12.4 g/dL (13.0-17.5) Hematocrit 38.3 % (39.0-53.0) Mean Corpuscular Volume 84 fL (79-100) Mean Corpuscular Hemoglobin 27 pg (25-35) Mean Corpuscular Hemoglobin Concent 32 g/dL (31-37) Red Cell Distribution Width 16.7 % (11.5-14.5) Platelet Count 196 x10^3/uL (140-400) Neutrophils (%) (Auto) 77 % (31-73) Lymphocytes (%) (Auto) 17 % (24-48) Monocytes (%) (Auto) 5 % (0-9) Eosinophils (%) (Auto) 1 % (0-3) Basophils (%) (Auto) 1 % (0-3) Neutrophils # (Auto) 8.7 x10^3uL (1.8-7.7) Lymphocytes # (Auto) 1.9 x10^3/uL (1.0-4.8) Monocytes # (Auto) 0.5 x10^3/uL (0.0-1.1) Eosinophils # (Auto) 0.2 x10^3/uL (0.0-0.7) Basophils # (Auto) 0.1 x10^3/uL (0.0-0.2) Prothrombin Time 32.0 SEC (11.7-14.0) 30.6 SEC (11.7-14.0) Prothromb Time International Ratio 3.4 (0.8-1.1) 3.2 (0.8-1.1) Sodium Level 136 mmol/L (136-145) Potassium Level 4.0 mmol/L (3.5-5.1) Chloride Level 101 mmol/L (98-107) Carbon Dioxide Level 30 mmol/L (21-32) Anion Gap 5 (6-14) Blood Urea Nitrogen 14 mg/dL (8-26) Creatinine 1.2 mg/dL (0.7-1.3) Estimated GFR (Cockcroft-Gault) 62.4 BUN/Creatinine Ratio 12 (6-20) Glucose Level 138 mg/dL (70-99) Calcium Level 8.8 mg/dL (8.5-10.1) Total Bilirubin 0.3 mg/dL (0.2-1.0) Aspartate Amino Transf (AST/SGOT) 27 U/L (15-37) Alanine Aminotransferase (ALT/SGPT) 31 U/L (16-63) Alkaline Phosphatase 68 U/L (46-116) GQ-Vze-Q-Type Natriuretic Peptide 85 pg/mL (0-124) Total Protein 7.5 g/dL (6.4-8.2) Albumin 2.9 g/dL (3.4-5.0) Albumin/Globulin Ratio 0.6 (1.0-1.7) Thyroid Stimulating Hormone (TSH) 2.022 uIU/mL (0.358-3.74) Urine Collection Type Unknown Urine Color Yellow Urine Clarity Clear Urine pH 5.5 Urine Specific [place] 1.015 Urine Protein 30 mg/dL (NEG-TRACE) Urine Glucose (UA) Negative mg/dL (NEG) Urine Ketones (Stick) Negative mg/dL (NEG) Urine Blood Large (NEG) Urine Nitrite Negative (NEG) Urine Bilirubin Negative (NEG) Urine Urobilinogen Dipstick 0.2 mg/dL (0.2 mg/dL) Urine Leukocyte Esterase Negative (NEG) Urine RBC >40 /HPF (0-2) Urine WBC 1-4 /HPF (0-4) Urine Squamous Epithelial Cells Few /LPF Urine Bacteria Few /HPF (0-FEW) Urine Hyaline Casts Many /HPF Urine Mucus Marked /LPF Hemoglobin A1c 6.5 % (4.8-5.6) Triglycerides Level 143 mg/dL (0-150) Cholesterol Level 154 mg/dL (0-200) LDL Cholesterol, Calculated 97 mg/dL (0-100) VLDL Cholesterol, Calculated 29 mg/dL (0-40) Non-HDL Cholesterol Calculated 126 mg/dL (0-129) HDL Cholesterol 28 mg/dL (40-60) Cholesterol/HDL Ratio 5.5 Test 10/19/16 05:16 Prothrombin Time 26.9 SEC (11.7-14.0) Prothromb Time International Ratio 2.7 (0.8-1.1) Laboratory Tests Test 10/19/16 05:16 Prothrombin Time 26.9 SEC (11.7-14.0) Prothromb Time International Ratio 2.7 (0.8-1.1) Medications Current Medications Allopurinol (Zyloprim) 300 mg DAILY PO Last administered on 10/19/16 08:25; Start 10/17/16 at 16:00 Furosemide (Lasix) 20 mg DAILY PO Last administered on 10/18/16 08:22; Start at 16:00; Stop 10/18/16 at 10:23; Status DC Acetaminophen/ Hydrocodone Bitart (Lortab 7.5/325) 1 tab PRN Q4HRS PRN PO PAIN MILD TO MOD Last administered on 10/19/16 08:37; Start 10/17/16 at 15:15 Metoprolol Succinate (Toprol Xl) 25 mg DAILY PO Last administered on 10/19/16 08:24; Start 10/17/16 at 16:00 Warfarin Sodium (Coumadin) 7.5 mg DAILY PO ; Start 10/18/16 at 09:00; Status UNV Warfarin Sodium (Coumadin Per Pharmacy) 1 each PRN DAILY PRN MC SEE COMMENTS Last administered on 10/19/16 12:55; Start 10/17/16 at 15:30 Warfarin Sodium (Coumadin - No Dose Today) 1 each 1X ONCE MC Last administered on 10/17/16 17:27; Start 10/17/16 at 17:15; Stop 10/17/16 at 17:16 ; Status DC Furosemide (Lasix) 40 mg BID92 IVP Last administered on 10/19/16 13:11; Start 10/18/16 at 11:00 Potassium Chloride (Klor-Con) 10 meq TIDAFTMEAL PO Last administered on 13:10; Start 10/18/16 at 13:00 Warfarin Sodium (Coumadin) 1 mg 1X WARF ONCE PO Last administered on 10/18/16 14:57; Start 10/18/16 at 16:00; Stop 10/18/16 at 16:01; Status DC Warfarin Sodium (Coumadin) 5 mg 1X WARF ONCE PO ; Start 10/19/16 at 16:00; Stop 10/19/16 at 16:01 Active Scripts Active Furosemide 20 Mg Tablet 20 Mg PO DAILY Reported Lortab 7.5-325 mg Tablet (Hydrocodone/Acetaminophen) 1 Each Tablet 1 Tab PO PRN Q4HRS PRN Coumadin (Warfarin Sodium) 7.5 Mg Tablet 1 Tab PO DAILY Allopurinol 300 Mg Tablet 1 Tab PO DAILY Metoprolol Succinate ( Xl ) (Metoprolol Succinate) 25 Mg Tab.er.24h 1 Tab PO DAILY Vitals/I & O Vital Sign - Last 24 Hours 10/18/16 10/18/16 10/18/16 10/18/16 15:00 19:00 19:44 23:00 Temp 97.9 98.4 97.9 97.9 98.4 97.9 Pulse 79 92 77 Resp 22 22 22 B/P (MAP) 131/88 (102) 128/67 (87) 134/81 (98) Pulse Ox 97 93 97 O2 Delivery Room Air Room Air Room Air 10/19/16 10/19/16 10/19/16 10/19/16 03:24 07:47 08:00 08:24 Temp 98.3 98.4 98.3 98.4 Pulse 76 86 86 Resp 18 22 B/P (MAP) 123/73 (90) 102/82 (89) 102/82 Pulse Ox 96 97 O2 Delivery BiPAP/CPAP BiPAP/CPAP Room Air 10/19/16 11:00 Temp 98.5 98.5 Pulse 81 Resp 18 B/P (MAP) 139/84 (102) Pulse Ox 96 Intake and Output 10/18/16 10/18/16 10/19/16 15:00 23:00 07:00 Intake Total 250 ml 1060 ml 1100 ml Output Total 1500 ml Balance 250 ml -440 ml 1100 ml JAH GELLER MD Oct 19, 2016 14:30
[2016-10-19 15:00] VITALS: BP 134/96
[2016-10-19] MEDS ORDERED: WARFARIN 5 MG TABLET. PO ONE (16:00)
[2016-10-19 19:00] VITALS: BP 146/82
[2016-10-19 23:00] VITALS: BP 125/72
[2016-10-20 03:00] VITALS: BP 132/79
[2016-10-20 06:26] LABS: INR 2.4 (0.8-1.1); PROTHROMBIN TIME PATIENT 24.6 SEC (11.7-14.0)
[2016-10-20 07:44] VITALS: BP 146/72
[2016-10-20] MEDS: FUROSEMIDE 40 MG/4 ML VIAL. IVP SCH (08:28)
--- NOTE | 2016-10-20 08:30 | PDOC ---
GENERAL General: vss and afebrile. awake and alert. breathing much better. could go later today on lasix if ok with all. chest clear and heart regular. Problems: VITAL SIGNS Vital Signs: Vital Signs Date Time Temp Pulse Resp B/P (MAP) Pulse Ox O2 Delivery O2 Flow Rate FiO2 10/20/16 07:44 97.5 74 18 146/72 (96) 93 97.5 10/19/16 20:00 Room Air I & O I & O Intake and Output 10/20/16 07:00 Intake Total 1120 ml Balance 1120 ml Intake Oral 1120 ml # Voids 7 ALLERGIES Allergies: Allergies Coded Allergies Type Severity Reaction Last Updated Verified No Known Drug Allergies 03/16/16 No MEDS Medications: Current Medications Medications (Trade) Dose Ordered Sig/Alyson Start Time Stop Time Status Last Admin Dose Admin Acetaminophen/ Hydrocodone Bitart (Lortab 7.5/325) 1 tab PRN Q4HRS PRN 10/17/16 15:15 10/19/16 18:24 1 TAB Allopurinol (Zyloprim) 300 mg DAILY 10/17/16 16:00 10/19/16 08:25 300 MG Furosemide (Lasix) 40 mg [id number] 10/18/16 11:00 10/19/16 13:11 40 MG Metoprolol Succinate (Toprol Xl) 25 mg DAILY 10/17/16 16:00 10/19/16 08:24 25 MG Potassium Chloride (Klor-Con) 10 meq TIDAFTMEAL 10/18/16 13:00 10/19/16 18:23 10 MEQ Warfarin Sodium (Coumadin - No Dose Today) 1 each 1X ONCE 10/17/16 17:15 10/17/16 17:16 DC 10/17/16 17:27 1 EACH Warfarin Sodium (Coumadin Per Pharmacy) 1 each PRN DAILY PRN 10/17/16 15:30 10/19/16 12:55 1 EACH Warfarin Sodium (Coumadin) 5 mg 1X WARF ONCE 10/19/16 16:00 10/19/16 16:01 DC 10/19/16 16:42 5 MG LAB Lab: Laboratory Tests Test 10/20/16 05:15 Prothrombin Time 24.6 SEC (11.7-14.0) Prothromb Time International Ratio 2.4 (0.8-1.1) SHIRA HEDRICK MD Oct 20, 2016 08:30
[2016-10-20] MEDS: METOPROLOL SUCC 24HR ER 25 MG TAB.ER.24H. PO SCH (08:34)
[2016-10-20] MEDS: POTASSIUM CHLORIDE 10 MEQ TABLET.ER. PO SCH (08:35)
[2016-10-20] MEDS: ALLOPURINOL 300 MG TABLET. PO SCH (08:35)
[2016-10-20 11:36] VITALS: BP 140/78
--- NOTE | 2016-10-20 16:58 | PDOC ---
PULMONARY PROGRESS NOTES Subjective no soa Vitals Vital Signs Date Time Temp Pulse Resp B/P (MAP) Pulse Ox O2 Delivery O2 Flow Rate FiO2 10/20/16 11:36 97.5 72 18 140/78 (98) 94 97.5 10/20/16 08:00 Room Air General: Alert, No acute distress Lungs: Clear Cardiovascular: S1 Abdomen: Soft, Other (obese) Neuro Exam: Alert Extremities: Other (1+edema) Skin: Warm Labs Laboratory Tests Test 10/19/16 05:16 10/20/16 05:15 Prothrombin Time 26.9 SEC (11.7-14.0) 24.6 SEC (11.7-14.0) Prothromb Time International Ratio 2.7 (0.8-1.1) 2.4 (0.8-1.1) Potassium Level 3.6 mmol/L (3.5-5.1) Laboratory Tests Test 10/20/16 05:15 Prothrombin Time 24.6 SEC (11.7-14.0) Prothromb Time International Ratio 2.4 (0.8-1.1) Potassium Level 3.6 mmol/L (3.5-5.1) Medications Active Scripts Medications Dose Route/Sig Max Daily Dose Days Date Category Furosemide 20 Mg Tablet 20 Mg PO DAILY 03/20/16 Rx Lortab 7.5-325 mg Tablet (Hydrocodone/Acetaminophen) 1 Each Tablet 1 Tab PO PRN Q4HRS PRN 03/16/16 Reported Coumadin (Warfarin Sodium) 7.5 Mg Tablet 1 Tab PO DAILY 03/16/16 Reported Allopurinol 300 Mg Tablet 1 Tab PO DAILY 03/16/16 Reported Metoprolol Succinate ( Xl ) (Metoprolol Succinate) 25 Mg Tab.er.24h 1 Tab PO DAILY 03/16/16 Reported Impression . 1. Dyspnea which has been progressive for the last 2 months. This is most likely related to 23 pound weight gain and physical deconditioning. He is morbidly obese and has lower extremity edema and the possibility of acute cor pulmonale would be a likely reason 2. History of pulmonary embolism in a patient who is morbidly obese. Pulmonary embolism was diagnosed about 5-6 years ago. 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 He had no DVT at that time of diagnosis of pulmonary embolism. INR is therapeutic and at this point I do not see any further workup .will remain on lifelong coumadin as long as his risk factors are present. 3..No evidence of pulmonary hypertension by echo. Normal LV function 4. AYSHA with good Compliance with BiPAP at 16. Plan . 1 weight loss is strongly advised 2. Continue diuresis 3. Follow-up with echocardiogram with no significant pulmonary hypertension. 4. Continue lifelong Coumadin. 5. BiPAP daily at bedtime ABIMAEL ARENAS MD Oct 20, 2016 16:58
== END 2016-10-20 14:48 | disposition home or self-care (01) | DRG 175 ==
LOC: 6 SOUTH 13:48
PROVIDERS: ADMIT Family Medicine; ATTEND Family Medicine
PROC: 5A09357 Assistance with Respiratory Ventilation, Less than 24 Consecutive Hours, Continuous Positive Airway Pressure (ICD-10-PCS; principal; 2016-10-19)
DX: I26.09 Other pulmonary embolism with acute cor pulmonale (principal); Z68.45 Body mass index [BMI] 70 or greater, adult; R60.0 Localized edema; E66.01 Morbid (severe) obesity due to excess calories; G47.33 Obstructive sleep apnea (adult) (pediatric); I10 Essential (primary) hypertension; K21.9 Gastro-esophageal reflux disease without esophagitis; M10.9 Gout, unspecified; Z79.01 Long term (current) use of anticoagulants; Z82.49 Family history of ischemic heart disease and other diseases of the circulatory system; Z87.891 Personal history of nicotine dependence; Z90.89 Acquired absence of other organs; Z79.899 Other long term (current) drug therapy; Z86.711 Personal history of pulmonary embolism
CPT/HCPCS: 36415; 71010; 80053; 80061; 81001; 83036; 83880; 84132; 84443; 85027; 85610; 93306; A6539; C1887; J1940

== ENCOUNTER → 2020-07-13 | Outpatient (CLI) | payer OTHER ==
[2017-03-21 12:41] VITALS: BP 114/73
[~2020-07-13] MED LIST changes: +AMOX1TAB61 PO; +ATOR40TA59 PO; +ISOS30TA68 PO; +LISI20TA18 PO; +METO-239 PO; -METO25TA9 PO; +PROM118S5 PO
--- NOTE | 2020-07-13 13:41 | RAD ---
XR LUMBAR SPINE 2-3V History: Reason: LOW BACK PAIN, DISABILITY DETERMINATION, PT 550+LBS / Spl. Instructions: MAXIMUM TUB E TECHNIQUE USED Comparison: None. Technique: 3 views of the lumbar spine. Findings: Exam somewhat limited due to x-ray underpenetration in the setting of large body habitus. There is no evidence for fracture. Alignment is normal. No destructive osseous lesions are seen. Multilevel endplate osteophytes with mild narrowing and vacuum disc phenomenon at L5-S1. Multilevel facet hypertrophy. Soft tissues are unremarkable. IMPRESSION: 1. Mild lumbar spondylosis. Electronically signed by: Jorden Chavarria MD (07/13/2020 1:39 PM) [facility]
--- NOTE | 2020-07-13 13:54 | RAD ---
XR KNEE_RT 1-2 VIEWS History: Reason: LOW BACK AND KNEE PAIN, DISABILITY DETERMINATION, PT 500+LBS Comparison: None. Technique: 2 views of the right knee Findings: No fracture. Osseous mineralization is normal. Varus alignment. Severe degenerative changes with complete loss of the medial tibiofemoral joint space and the patello femoral joint space. Large tricompartmental osteophytes. Impression: 1. Severe right knee osteoarthritis. Electronically signed by: Jorden Chavarria MD (07/13/2020 1:52 PM) [facility]
== END ==
LOC: RAD 08:55
DX: Z02.71 Encounter for disability determination (principal); M17.11 Unilateral primary osteoarthritis, right knee; M47.816 Spondylosis without myelopathy or radiculopathy, lumbar region
CPT/HCPCS: 72100; 73560